=== PATIENT | female | born 1950 | race Caucasian/White ===

== ENCOUNTER 2019-03-28 09:13 | Day surgery (SDC) | payer OTHER ==
[~2019-03-28] VITALS: Ht 157.5 cm; Wt 74.5 kg
[~2019-03-28 09:13] MED LIST: GLIPIZIDE; HYDROCHLOROTHIAZIDE; JANUVIA; LISINOPRIL; PIOGLITAZONE
[2019-03-28 10:39] VITALS: Ht 157.5 cm; Wt 74.5 kg
[2019-03-28 10:41] VITALS: BP 139/64; PULSE 46; RESP 18
[2019-03-28] MEDS ORDERED: FENTAnyl 50 MCG/ML VIAL ONE (11:34)
[2019-03-28] MEDS ORDERED: ATROPINE 1 MG/10 ML SYRINGE ONE ×2 (11:34→11:35)
[2019-03-28] MEDS ORDERED: MIDAZOLAM 1 MG/ML 2 ML INJ ONE (11:35)
[2019-03-28 11:54] VITALS: BP 138/65; RESP 15
== END 2019-03-28 14:04 | disposition home or self-care (01) ==
LOC: GIL 09:13
PROVIDERS: ATTEND Internal Medicine Gastroenterology
DX: R19.4 Change in bowel habit (principal); K64.9 Unspecified hemorrhoids; E11.9 Type 2 diabetes mellitus without complications
CPT/HCPCS: 45378; 82962; J0461; J2250; J3010